=== PATIENT | male | born 1990 | race Caucasian/White ===

== ENCOUNTER 2024-01-26 10:41 | Emergency (ER) | payer SELFPAY ==
--- NOTE | ~2024-01-26 | XR_ITS ---
EXAMINATION: XR chest 2V DATE: 01/26/2024 12:31 INDICATION: Chest pain. TECHNIQUE: Frontal and lateral views of the chest were obtained. COMPARISON: None. FINDINGS: There is no pneumonia, pleural effusion, or pneumothorax. The heart size is normal. IMPRESSION: 1. No acute cardiopulmonary disease. Reviewed, dictated and finalized at location E.
[2024-01-26 10:50] VITALS: BP 113/78; PULSE 89; RESP 16; TEMP 36.6; O2SAT 99
[2024-01-26 11:19] VITALS: RESP 18
--- NOTE | 2024-01-26 11:22 | PC.NURSE ---
treated for gonorrhea and chlamydia a month or two ago, and hasn't been with anyone since and has noticed sores popping up on his penis for the last couple of days and feeling like his lungs hurt when he walks, and palms of his hands itching.
--- NOTE | 2024-01-26 12:15 | ED.GENADULT ---
HPI - General Adult General Chief complaint: Unspecified Stated complaint: my lungs are hurting Time Seen by Provider: 01/26/24 11:59 History of Present Illness HPI narrative: Patient is a 33 year old male with history of recent gonorrhea and chlamydia here with multiple symptoms including upper back pain, a genital sore, lung pain, itching hands and feet and some shortness of breath. Patient tells me that approximately 2 months ago he was treated for gonorrhea and chlamydia. he has not had any new sexual partners since that time. He states that he had a different sexual partner at the beginning of this year who also gave him gonorrhea and chlamydia that he was treated for. He notes that over the last 3 days he has had some lung pain . He describes it as pain in his upper back and seems to be worse when he moves around. He denies any cough, congestion shortness of breath. He denies any worsening with deep breaths. He denies any recent falls. He notes over this same period of time he had a solitary sore over his mons pubis which was painful in nauture and has begun healing on its own and is nearly resolved. he denies any penile ulcers. He denies any penile discharge. He tells me that he did a report on syphilis while he was in high school and believes that his symptoms are consistent with syphilis and would like to be tested for syphilis. No dysuria. No fever or chills. Related Data Allergies Allergy/AdvReac Type Severity Reaction Status Date / Time No Known Allergies Allergy Verified 01/26/24 10:54 Review of Systems Review of Systems: All systems reviewed & are unremarkable except as noted in HPI and below Exam Narrative: GENERAL: Well-appearing, well-nourished, and in no acute distress. HEAD: Normocephalic, atraumatic. EYES: PERRLA and EOMI. ENT: Nares clear. Mucous membranes moist. NECK: Supple. CHEST: Clear to auscultation. No respiratory distress. HEART: Regular rate and rhythm. Normal peripheral pulses. ABDOMEN: Soft, nontender, nondistended. : Exam performed with RN as licensing worker. The patient has a solitary a skin lesion over the mons pubis it is well healing. No penile sores, no penile discharge, testicles unremarkable. EXTREMITIES: Normal range of motion. No edema. No reproducible tenderness over the thoracic or lumbar spine. No step-offs. SKIN: Warm, dry, no rash. No lesions on palms or soles. NEURO: No focal deficits. Alert and oriented x3. PSYCH: Normal mood and affect. Course Course Emergency Course: Chart review performed. Patient here with lung pain with walking. Triage vitals normal. No prior visits in our system. Patient seen evaluated. He has a multitude of complaints, believes they all must be attributed to syphilis. Will do syphilis testing. His current genital lesion is not on his penile shaft, quite a far distance from his penis itself, is already well healing and unable to be swabbed at this time. I do have lower suspicion for syphilis. He does not have any lesions on his palms or soles and it would be unlikely for him to have primary, secondary and tertiary syphilis all at the same time over the last 3 days. Will perform gonorrhea, chlamydia, syphilis testing. Chest x-ray performed and appears to be normal. EKG unremarkable. Patient is agreeable to workup and plan. Lab work and imaging reviewed. UA negative for UTI. Gonorrhea, chlamydia, Trichomonas negative. After confirmation with lab, the RPR will not come back today. At this time patient was updated on all results and advised to follow his RPR with his online account. The results of pertinent diagnostic studies and exam findings were discussed. The patient?s provisional diagnosis and plan of care were discussed with the patient and present family. The patient and/or present family expressed understanding of the diagnosis and plan. The nurse was instructed to provide written instructions and appropriate follow-up infor
--- NOTE | 2024-01-26 12:16 | ECG_ITS ---
SEE SCANNED COPY FOR CONFIRMED REPORT MTDD
[2024-01-26 14:52] LABS: Appearance Urine Clear (Clear); Bilirubin Urine Negative (Negative); Blood Urine Negative (Negative); Color Urine Yellow (Yellow); Glucose Urine UA Negative (Negative); Ketones Urine Trace mg/dL (Negative); Leukocyte Esterase Ur Negative LEU/UL (Negative); Nitrate Urine Negative (Negative); Protein Urine Negative (Negative); Specific Grav Ur 1.023 (1.001-1.035)
[2024-01-26 15:14] LABS: Add Urine Microscopic? NO
[2024-01-26 15:28] LABS: Trichomonas Vag PCR NOT DETECTED (NOT DETECTE)
[2024-01-26 15:51] LABS: Chlamydia trachomatis NOT DETECTED (NOT DETECTE); Neisseria gonorrhoeae PCR NOT DETECTED (NOT DETECTE)
[2024-01-26 16:44] VITALS: BP 135/64; PULSE 82; RESP 18; TEMP 36.7; O2SAT 100
[2024-01-27 11:26] LABS: Rapid Plasma Reagin Non-Reactive (NonReactive)
== END 2024-01-26 16:47 | disposition home or self-care (01) ==
PROVIDERS: Emergency Provider Student in an Organized Health Care Education/Training Program
DX: M54.6 Pain in thoracic spine (principal)
CPT/HCPCS: 36415; 71046; 81003; 86592; 87491; 87591; 87661; 93005; 99283